=== PATIENT | female | born 1990 | race Two or more races ===

== ENCOUNTER 2018-07-03 06:47 | Emergency (ER) | payer OTHER ==
[~2018-07-03] VITALS: Ht 162.6 cm; Wt 74.8 kg
[~2018-07-03 06:47] MED LIST: MUCINEX DM TABL1 BOX PO; ZITHROMAX500 MG PO
== END 2018-07-03 09:36 | disposition home or self-care (01) ==
LOC: ER 06:47
DX: B34.9 Viral infection, unspecified (principal)